=== PATIENT | male | born 1935 | race Caucasian/White ===

== ENCOUNTER → 2017-05-28 | Outpatient (CLI) | payer MEDICARE, BC ==
[~2017-05-28] MED LIST: ALBU18HF INH; BUDE10.2 INH; CALC600T4 PO; CHOL2000 PO; CYAN1TAB19 PO; L.AC1CAP6 PO; MIRA50TA PO; OMEP-110 PO; PANT40TA5 PO; PRAV20TA2 PO; RIVA20TA PO; VIT1CAPS11 PO
[2017-05-28 15:45] LABS: ASPARTATE AMINO TRANSFERASE 18 U/L (15-37); BLOOD UREA NITROGEN 19 mg/dL (7-18)
== END | disposition home or self-care (01) ==
LOC: STAR 13:30
PROVIDERS: ATTEND Urology
DX: Z01.818 Encounter for other preprocedural examination (principal); C67.9 Malignant neoplasm of bladder, unspecified; R82.99 Other abnormal findings in urine
CPT/HCPCS: 36415; 80053; 81003; 87086; 93005

== ENCOUNTER → 2017-10-08 | Outpatient (CLI) | payer MEDICARE, BC ==
[2017-10-08 12:16] LABS: BASOPHILS # (AUTO) 0.04 x10^3/uL (0-0.1); BASOPHILS % (AUTO) 1 % (0-1); EOSINOPHILS % (AUTO) 2 % (1-7); LYMPHOCYTES # (AUTO) 1.52 x10^3/uL (1-3.4); LYMPHOCYTES % (AUTO) 18 % (22-44); MD NO; MEAN CORPUSCULAR HEMOGLOBIN 30.9 pg (27.5-34.5); MEAN CORPUSCULAR HGB CONC 33.3 g/dL (33.2-36.2); MEAN CORPUSCULAR VOLUME 92.6 fL (81-97); MEAN PLATELET VOLUME 7.5 fL (7.4-10.4); MONOCYTES # (AUTO) 0.76 x10^3/uL (0.2-0.8); MONOCYTES % (AUTO) 9 % (2-9); NEUTROPHILS # (AUTO) 5.74 x10^3/uL (1.8-6.8); NEUTROPHILS % (AUTO) 70 % (42-75); PLATELET COUNT 179 x10^3/uL (130-400); RED BLOOD COUNT 4.98 x10^6/uL (4.38-5.82); RED CELL DISTRIBUTION WIDTH 14.7 % (9.4-14.8)
[2017-10-08 12:27] LABS: ANION GAP 7 mmol/L (5-15); CALCIUM 8.9 mg/dL (8.5-10.1); CHLORIDE 108 mmol/L (98-107); CREATININE 1.26 mg/dL (0.7-1.3)
== END ==
LOC: STAR 11:04
PROVIDERS: ATTEND Otolaryngology Facial Plastic Surgery
DX: Z01.818 Encounter for other preprocedural examination (principal); J34.2 Deviated nasal septum; J32.0 Chronic maxillary sinusitis; J34.3 Hypertrophy of nasal turbinates; R94.31 Abnormal electrocardiogram [ECG] [EKG]
CPT/HCPCS: 36415; 71046; 80048; 85025; 93005

== ENCOUNTER 2018-08-28 06:54 | Day surgery (SDC) | payer MEDICARE, BC ==
[~2018-08-28] VITALS: Ht 182.9 cm; Wt 109.6 kg
[2018-08-28] MEDS ORDERED: LACTATED RINGERS 1,000 ML IV SCH (07:43)
[2018-08-28 08:13] VITALS: BP 133/81
[2018-08-28] MEDS ORDERED: MIDAZOLAM 1 MG/ML, 2ML ONE (08:23)
[2018-08-28] MEDS ORDERED: FENTANYL PF 100 MCG/2ML ONE (08:24)
[2018-08-28] MEDS ORDERED: MEPERIDINE/PF 25MG/0.5ML IVPush PRN (08:30)
[2018-08-28] MEDS ORDERED: ONDANSETRON 2MG/ML, 2ML IVPush PRN (08:30)
[2018-08-28] MEDS ORDERED: OXYcodone 5 MG/5 ML ORAL.SOL UDC PO PRN (08:30)
[2018-08-28] MEDS ORDERED: FENTANYL PF 100 MCG/2ML IV PRN (08:30)
[2018-08-28] MEDS ORDERED: MIDAZOLAM 1 MG/ML, 2ML IV PRN (08:30)
[2018-08-28] MEDS ORDERED: HYDROmorphone 1 MG/ML, 1ML IV PRN (08:30)
[2018-08-28] MEDS ORDERED: LABETALOL 5MG/ML, 20ML IV PRN (08:30)
[2018-08-28] MEDS ORDERED: CEFAZOLIN 1,000 MG ONE (08:32)
[2018-08-28] MEDS ORDERED: GENTAMICIN 80 MG/2 ML ONE (08:32)
[2018-08-28] MEDS ORDERED: PROPOFOL 10 MG/ML, 20ML ONE (08:32)
[2018-08-28] MEDS ORDERED: PHENAZOPYRIDINE 200 MG TABLET ONE (09:27)
[2018-08-28] MEDS ORDERED: PHENAZOPYRIDINE 200 MG TABLET PO ONE (09:30)
== END 2018-08-28 11:00 | disposition home or self-care (01) ==
LOC: OUT 06:54
PROVIDERS: ATTEND Urology
DX: N30.20 Other chronic cystitis without hematuria (principal); I10 Essential (primary) hypertension; K21.9 Gastro-esophageal reflux disease without esophagitis; G47.33 Obstructive sleep apnea (adult) (pediatric); J45.909 Unspecified asthma, uncomplicated; Z98.890 Other specified postprocedural states; Z79.899 Other long term (current) drug therapy
CPT/HCPCS: 52204; 88305; 93005; J0690; J1580; J2250; J2704; J3010; J7120

== ENCOUNTER 2021-01-14 14:19 | Outpatient (CLI) | payer MEDICARE, BC ==
[~2021-01-14 14:19] MED LIST changes: -CALC600T4 PO; +CALC600T60 PO; -PANT40TA5 PO; +PANT40TA6 PO
[2021-01-14 15:55] LABS: MICROSCOPIC NOT IND
[2021-01-14 15:56] LABS: INTERNATIONAL NORMALIZED RATIO 1.09 (0.93-1.1); PROTHROMBIN TIME 11.6 Seconds (9.6-11.5)
[2021-01-14 15:59] LABS: ANION GAP 2 mmol/L (5-15); CALCIUM 8.2 mg/dL (8.5-10.1); CHLORIDE 109 mmol/L (98-107)
[2021-01-14 16:00] LABS: CREATININE 1.33 mg/dL (0.7-1.3)
[2021-01-14 16:01] LABS: BASOPHILS % (AUTO) 1 % (0-1); EOSINOPHILS % (AUTO) 2 % (1-7); LYMPHOCYTES % (AUTO) 20 % (22-44); MEAN CORPUSCULAR HEMOGLOBIN 31.8 pg (27.5-34.5); MEAN CORPUSCULAR HGB CONC 33.2 g/dL (33.2-36.2); MEAN PLATELET VOLUME 7.6 fL (7.4-10.4); MONOCYTES % (AUTO) 9 % (2-9); NEUTROPHILS % (AUTO) 68 % (42-75); PLATELET COUNT 205 x10^3/uL (130-400); RED BLOOD COUNT 4.88 x10^6/uL (4.38-5.82); RED CELL DISTRIBUTION WIDTH 14.8 % (9.4-14.8)
[2021-01-14 16:02] LABS: MD NO
== END 2021-01-14 23:59 | disposition home or self-care (01) ==
LOC: STAR 14:19
PROVIDERS: ATTEND Urology
DX: Z01.812 Encounter for preprocedural laboratory examination (principal); Z20.822 Contact with and (suspected) exposure to COVID-19; N32.89 Other specified disorders of bladder
CPT/HCPCS: 36415; 80048; 81003; 85025; 85610; 87086; 93005; U0003